=== PATIENT | female | born 1960 | race Caucasian/White ===

== ENCOUNTER → 2020-11-29 02:58 | Outpatient (CLI) | payer MEDICARE, SELFPAY ==
[2020-11-29 19:42] LABS: SARS-CoV-2 RNA PCR Negative
== END ==
PROVIDERS: PCP Nurse Practitioner Adult Health; Visit Provider Internal Medicine Cardiovascular Disease
DX: Z01.812 Encounter for preprocedural laboratory examination (principal); Z20.822 Contact with and (suspected) exposure to COVID-19
CPT/HCPCS: C9803; U0003; U0005

== ENCOUNTER → 2020-12-02 00:44 | Day surgery (SDC) | payer MEDICARE, MEDICAID, SELFPAY ==
[2020-12-01 15:29] VITALS: BMI 27.5
[2020-12-02] VITALS (11 sets, daily range): BP systolic 115–142; BP diastolic 66–88; PULSE 57–76; RESP 11–20; TEMP 36.3–36.4; O2SAT 98–100
--- NOTE | ~2020-12-02 | XR_ITS ---
EXAMINATION: XR chest 1V portable INDICATION: Chest pain, ICD lead revision TECHNIQUE: Portable AP chest at 1115 hours COMPARISON: 11/23/2016 FINDINGS: The lungs are free of acute opacities. There is no pleural effusion or pneumothorax. Cardio megaly is noted. A second pacemaker lead has been inserted. The existing pacemaker lead is seen to be disconnected from the pacer. The visualized osseous structures are unremarkable. IMPRESSION: 1. Pacemaker lead insertion. No pneumothorax. 2. Cardiomegaly. Reviewed, dictated and finalized at location B.
--- NOTE | 2020-12-02 06:00 | ECG_ITS ---
Measurements Intervals [place] Rate: 65 P: 63 RI: 151 QRS: -39 QRSD: 100 T: 132 QT: 404 QTc: 420 Interpretive Statements SINUS RHYTHM POSSIBLE LEFT ATRIAL ENLARGEMENT LEFT AXIS DEVIATION CANNOT RULE OUT SEPTAL INFARCT, AGE INDETERMINATE LEFT VENTRICULAR HYPERTROPHY WITH ST-T CHANGE BORDERLINE T WAVE ABNORMALITY- ANTEROLATERAL LEADS ABNORMAL ECG Electronically Signed On 12-02-2020 12:48:09 CDT by George Em D.O.
[2020-12-02 07:13] LABS: Basophils Percent Auto 0.3 % (0.2-1.2); Eosinophils Absolute Auto 0.1 K/mm3 (0-0.3); Eosinophils Percent Auto 1.7 % (0-4.4); Hematocrit 37.8 % (37.0-47.0); Hemoglobin 12.4 g/dL (12.0-15.0); Immature Granulocyte Absolute 0.02 K/mm3 (0.00-0.031); Immature Granulocyte Percent A 0.3 % (0-0.5); Lymphocytes Absolute Auto 1.38 K/mm3 (0.9-3.2); Lymphocytes Percent Auto 19.4 % (18.3-44.2); Mean Corpuscular HGB Conc 32.8 g/dl (32-36); Mean Corpuscular Hemoglobin 31.1 pg (26-34); Mean Corpuscular Volume 94.7 fl (80-100); Mean Platelet Volume 9.6 fl (7.4-10.4); Monocytes Absolute Auto 0.4 K/mm3 (0.1-0.6); Monocytes Percent Auto 5.5 % (2.6-8.5); Neutrophils Absolute Auto 5.2 K/mm3 (1.3-6.7); Neutrophils Percent Auto 72.8 % (45.5-73.1); Platelet Count Result 249 k/mm3 (150-375); Red Blood Count 3.99 M/mm3 (4.2-5.4); Red Cell Distribution Width 13.8 % (11.5-14.5); White Blood Count 7.1 K/mm3 (4.5-10.0)
[2020-12-02 07:23] LABS: Anion Gap 7 mmol/L (8-16); Blood Urea Nitrogen 24 mg/dL (7-17); Calcium 9.3 mg/dL (8.4-10.2); Carbon Dioxide 24 mmol/L (22-30); Chloride 109 mmol/L (98-107); Estimated CRCL calculation 64 ml/min; Estimated Glomerular Filt Rate > 60; Glucose 107 mg/dL (65-105); Potassium 4.5 mmol/L (3.4-5.0); Sodium 140 mmol/L (137-145)
[2020-12-02 07:25] LABS: INR 0.9; Prothrombin Time 12.5 Seconds (11.1-14.7)
--- NOTE | 2020-12-02 07:28 | PM.IMHP ---
H&P: HPI History of Present Illness Date/Time: 12/02/20 07:28 Chief Complaint: Malfunction of ICD lead Narrative: Agata Martinez is a 60-year-old female with a history CAD and ischemic cardiomyopathy followed by Dr. Michael. She has a [employer] ICD which I implanted in September 2016 and then required a lead revision in November 2016. She has done well over the last several years. Recently we found that she had high lead impedance and high thresholds consistent with fibrosis around the lead and exit block. RV lead revision is recommended prior to lead failure. The patient is feeling well today with no shortness of breath fevers or illness. She has been NPO. Review of Systems Constitutional: Constitutional: Reports no additional constitutional complaints ENT: Reports system reviewed and no additional complaints, except as documented Cardiovascular: Cardiovascular: Denies chest pain, Denies pedal edema, Denies leg edema, Denies lightheadedness and Denies palpitations Respiratory: Respiratory: Denies chest congestion, Denies cough and Denies dyspnea Gastrointestinal: Gastrointestinal: Denies abdominal pain Genitourinary: Genitourinary: Reports no additional female genitourinary complaints Musculoskeletal: Musculoskeletal: Reports arthralgias Integumentary/Breasts: Skin/Breast: Denies rash Neurologic: Reports system reviewed and no additional complaints, except as documented Psychiatric: Psychiatric: Reports no additional psychiatric complaints [facility] Past Medical History Medical History (Updated 12/02/20 @ 07:39 by Mary Jo Siegel MD) CAD (coronary artery disease) July 2011 NSTEMI, 2 ROBBY to the proximal/mid Left anterior descending 04/2012 ischemia, InStent restenoses, 2 ROBBY to the proximal mid Left anterior descending 04/2012 anterior STEMI secondary to acute stent thrombosis, 2 ROBBY to the Left anterior descending by Dr. jensen in. CHF (congestive heart failure) 2012 Depression Dyslipidemia Hypothyroidism ICD (implantable cardioverter-defibrillator) in place 2017 implantation of a [employer] single lead ICD. Required lead revision 1 month later. Migraines Rheumatoid arthritis Family History Family History (Updated 12/02/20 @ 07:38 by Mary Jo Siegel MD) Other Cancer Rheumatoid arthritis Social History Social History Smoking status: Former smoker Tobacco type: cigarettes Additional smoking assessment comments: 12PPD Alcohol use details: twice a year patient has one drink Substance use: never Living arrangements: with family Spiritual care concerns: No Meds Home Medications and Allergies Home Medications Medication Instructions Recorded Confirmed Type carvedilol 12.5 mg PO BID 12/01/20 12/01/20 History clopidogrel 75 mg PO DAILY 12/01/20 12/01/20 History cyclobenzaprine 10 mg PO TID 12/01/20 12/01/20 History duloxetine [Cymbalta] mg PO DAILY 12/01/20 History famotidine 20 mg PO BID 12/01/20 12/01/20 History folic acid 1 mg PO DAILY 12/01/20 12/01/20 History hydroxychloroquine [Plaquenil] 200 mg PO BID 12/01/20 12/01/20 History levothyroxine 125 mcg PO DAILY 12/01/20 12/01/20 History lisinopril 10 mg PO DAILY 12/01/20 12/01/20 History methotrexate sodium [Methotrexate WEEKLY 12/01/20 History (Anti-Rheumatic)] rosuvastatin 40 mg DAILY 12/01/20 12/01/20 History Allergies Allergy/AdvReac Type Severity Reaction Status Date / Time No Known Allergies Allergy Verified 04/29/16 18:11 Exam Const: General: comfortable and no acute distress HENMT: Mouth: Yes moist mucous membranes Other: Upper and lower dentures Eyes: EOM: EOMs intact bilaterally Neck: Neck: supple Thyroid: thyroid normal Lymphatic: lymphadenopathy not noted Resp: Effort & Inspection: normal respiratory effort Auscultation: clear to auscultation bilaterally
--- NOTE | 2020-12-02 07:44 | WPDMODSED ---
Moderate Sedation Note-Pt Data Patient Data Diagnosis: ICD RV lead failure, with fibrosis and exit block Present Complaint: ICD RV lead failure Procedure to be performed/Plan: Conscious sedation Veenogram Replacement of ICD lead Allergies Allergy/AdvReac Type Severity Reaction Status Date / Time No Known Allergies Allergy Verified 04/29/16 18:11 Home Medications Medication Instructions Recorded Confirmed Type carvedilol 12.5 mg PO BID 12/01/20 12/01/20 History clopidogrel 75 mg PO DAILY 12/01/20 12/01/20 History cyclobenzaprine 10 mg PO TID 12/01/20 12/01/20 History duloxetine [Cymbalta] mg PO DAILY 12/01/20 History famotidine 20 mg PO BID 12/01/20 12/01/20 History folic acid 1 mg PO DAILY 12/01/20 12/01/20 History hydroxychloroquine [Plaquenil] 200 mg PO BID 12/01/20 12/01/20 History levothyroxine 125 mcg PO DAILY 12/01/20 12/01/20 History lisinopril 10 mg PO DAILY 12/01/20 12/01/20 History methotrexate sodium [Methotrexate WEEKLY 12/01/20 History (Anti-Rheumatic)] rosuvastatin 40 mg DAILY 12/01/20 12/01/20 History Sedation/Anesthesia: No previous sedation/anesthesia problems (including family history). [facility] Past Medical History Medical History (Updated 12/02/20 @ 07:39 by Mary Jo Siegel MD) CAD (coronary artery disease) July 2011 NSTEMI, 2 ROBBY to the proximal/mid Left anterior descending 04/2012 ischemia, InStent restenoses, 2 ROBBY to the proximal mid Left anterior descending 04/2012 anterior STEMI secondary to acute stent thrombosis, 2 ROBBY to the Left anterior descending by Dr. jensen in. CHF (congestive heart failure) 2011 Depression Dyslipidemia Hypothyroidism ICD (implantable cardioverter-defibrillator) in place 2016 implantation of a [employer] single lead ICD. Required lead revision 1 month later. Migraines Rheumatoid arthritis Family History Family History (Updated 12/02/20 @ 07:38 by Mary Jo Siegel MD) Other Cancer Rheumatoid arthritis Social History Social History Smoking status: Former smoker Tobacco type: cigarettes Additional smoking assessment comments: 1/2PPD Alcohol use details: twice a year patient has one drink Substance use: never Living arrangements: with family Spiritual care concerns: No Mod Sed Physical Exam Physical Exam Pre Procedural Exam: Normal: Appearance, Eyes, Ears, Nose, Neck, Throat, Lungs, Heart Size, Heart Rate, Heart Rhythm, Neuro Exam, Abdomen, Liver, Extremities and Skin (ICD incision well-healed) and Variation: Airway (Upper and lower dentures) Hours since solid foods: 12 Hours since liquid intake: 12 Internal Medicine - PN: Obj Da Vital Signs Vital Signs: Vital Signs - 24 hr 12/02/20 07:34 Temperature 97.4 F L Pulse Rate 68 Respiratory Rate 11 L Blood Pressure 135/67 Pulse Oximetry 100 Labs CBC & Chem 7: 12/02/20 06:49 12/02/20 06:49 Labs: Laboratory Results - last 24 hr 12/02/20 12/02/20 12/02/20 06:49 06:49 06:49 WBC 7.1 RBC 3.99 L Hgb 12.4 Hct 37.8 MCV 94.7 MCH 31.1 MCHC 32.8 RDW 13.8 Plt Count 249 MPV 9.6 Immature Gran % (Auto) 0.3 Neut % (Auto) 72.8 Lymph % (Auto) 19.4 [place] % (Auto) 5.5 Eos % (Auto) 1.7 Baso % (Auto) 0.3 Lymph # (Auto) 1.38 [place] # (Auto) 0.4 Eos # (Auto) 0.1 Baso # (Auto) 0.0 Abs Immat Gran (auto) 0.02 Absolute Neuts (auto) 5.2 Absolute Nucleated RBC 0.0 Nucleated RBC % 0.0 PT 12.5 INR 0.9 Sodium 140 Potassium 4.5 Chloride 109 H Carbon Dioxide 24 Anion Gap 7 L BUN 24 H Creatinine 0.80 Estim Creat Clear Calc 64 Estimated GFR > 60 Glucose 107 H Calcium 9.3 ASA Classification/Sedation ASA Classification/Sedation ASA Class: III Risks: Risks, benefits and alternatives explained and patient/family accepted plan for sedation. Patient re-evaluated immediately prior to sedation.
--- NOTE | 2020-12-02 09:29 | SUR.OPER ---
Pre and post sponge and needle counts were performed during this procedure. Performed by RT Linda and confirmed by Kathryn Hubbard RN.
--- NOTE | 2020-12-02 09:58 | PM.OP ---
Procedure Note - Brief Procedure Note - Brief Date of procedure: 12/02/20 Pre-op diagnosis: cv lead impedance ICDRV lead malfunction Post-op diagnosis: same Procedure performed: conscious sedation venogram implantation of a new RV lead Description of procedure: s/p new ICD RV lead Surgeon: Mary Jo Siegel MD Disposition: same day
--- NOTE | 2020-12-02 10:08 | PM.PROC ---
Procedure Note - Detailed Date of procedure: 12/02/20 Pre-op diagnosis: cv lead impedance Description of procedure: HISTORY: Agata Morse is a 60-year-old female status post [employer] ICD for primary prevention in 2017. Recently she was found to have elevated RV lead thresholds as well as elevated impedance consistent with fibrosis around the lead tip and exit block. Because of concern of lead failure, we are proceeding with an ICD right ventricular lead V revision. The patient was also given the option of extraction then subsequent lead revision, since if she has an abandoned lead the system is not MRI compatible. She declined. PROCEDURE PERFORMED: Conscious sedation Venogram Placement of a permanent dual-chamber pacemaker SITE: Left prepectoral area MEDICATIONS GIVEN IN FRAME CLEANER: Ancef 1 gram IV piggyback CONSCIOUS SEDATION: Assessment: The patient has no history of anesthesia problems. The patient's oropharynx is clear. The patient was deemed to be a good candidate for conscious sedation. The patient had continuous hemodynamic monitoring during the procedure. Start time: 826 Completion time: 952 Total conscious sedation time: 86 minutes Medications: Versed 3 mg, fentanyl 100 mcg IV push Trained observer: Kathryn Hubbard RN Outcome: The patient tolerated the procedure well with no complications. PROCEDURE: After informed consent , the patient was brought to the cardiovascular lab director and the left prepectoral area was prepped and draped in usual fashion . The patient received preop antibiotic and conscious sedation . A venogram was performed showing the course of the left subclavian vein,which was patent though quite tortuous. There was a stenosis of about 50% proximal to where the lead entered the vein. Attempt was made to access the left subclavian vein without easy success so I elected to obtain access through the pocket. The left prepectoral area was anesthetized with lidocaine . Next a skin incision was made and carried down to the pulse generator. Hemostasis was obtained using electrocautery . The left subclavian vein than was easily accessed with the micropuncture technique. However because of the stenosis and tortuosity I cannot easily passed the guidewire and used to slippery wire. With some manipulation I was able to guided into the inferior vena cava. I elected to use a long sheath because of the tortuosity of the venous system. A 7 [place] long sheath was placed over this wire and the wire withdrawn. The right ventricular high-voltage lead lead was passed into the right atrium and was then prolapsed through the tricuspid valve and advanced into the right ventricular apex under fluoroscopic guidance. When suitable sensing and pacing thresholds were obtained, it was screwed into place. No extra cardiac stimulation was obtained using 10 volts. The sheath was withdrawn. The lead was secured to the prepectoral fascia using 2-0 silk over its sleeve. The pocket was further dissected and the pulse generator was delivered from the pocket. The existing lead was disconnected and the new lead was screwed into the generator. A gentle tug showed the lead was securely fastened. The old lead was capped and secured with 2 0 silk suture. Using the silk suture stay stitch was also applied. The pocket was irrigated with antibiotic containing solution. The device was introduced into the pocket. The subcutaneous tissues were closed in a double layer fashion with interrupted sutures, using 2-0 Vicryl suture , and the skin was closed in a continuous fashion using 4-0 Vicryl suture in a continuous fashion. The area was cleansed, and an Aquacel dressing was applied . The patient tolerated the procedure well with no complications. PACEMAKER INFORMATION: Existing Pulse generator: [employer] model Fortify Assura VR 1357-40Q, Serial # [id number] implanted 10/09/2016 New Right ventricular lead: [employer] Durata 7122Q/[id number], serial
--- NOTE | 2020-12-02 14:55 | SUR.PHASEII ---
1420 patient ambulated to chair, no signs of further bleeding under the dressing, will continue to monitor.
== END | disposition home or self-care (01) ==
PROVIDERS: PCP Nurse Practitioner Adult Health; Visit Provider Internal Medicine Cardiovascular Disease
DX: T82.110A Breakdown (mechanical) of cardiac electrode, initial encounter (principal); T82.827 Fibrosis due to cardiac prosthetic devices, implants and grafts; Y83.8 Other surgical procedures as the cause of abnormal reaction of the patient, or of later complication, without mention of misadventure at the time of the procedure; I25.10 Atherosclerotic heart disease of native coronary artery without angina pectoris; I25.5 Ischemic cardiomyopathy; I50.9 Heart failure, unspecified; I25.2 Old myocardial infarction; E78.5 Hyperlipidemia, unspecified; E03.9 Hypothyroidism, unspecified; M06.9 Rheumatoid arthritis, unspecified; F32.9 Major depressive disorder, single episode, unspecified; Z87.891 Personal history of nicotine dependence; Z79.02 Long term (current) use of antithrombotics/antiplatelets
CPT/HCPCS: 33216; 36415; 71045; 80048; 85025; 85610; 93005; A9270; C1777; J0690; J2250; J3010; J7040

== ENCOUNTER → 2020-12-17 07:04 | Outpatient (CLI) | payer MEDICARE, SELFPAY ==
[2020-12-17 19:12] LABS: SARS-CoV-2 RNA PCR Negative
== END ==
PROVIDERS: PCP Nurse Practitioner Adult Health; Visit Provider Nurse Practitioner Adult Health
DX: J06.9 Acute upper respiratory infection, unspecified (principal); Z20.822 Contact with and (suspected) exposure to COVID-19
CPT/HCPCS: C9803; U0003; U0005

== ENCOUNTER 2021-01-26 16:54 | Outpatient (CLI) | payer MEDICARE, SELFPAY ==
--- NOTE | ~2021-01-26 | XR_ITS ---
EXAMINATION: XR chest 2V DATE: 01/26/2021 17:16 INDICATION: Malfunction of implantable defibrillator. TECHNIQUE: PA and lateral views of the chest were obtained. COMPARISON: Chest radiograph dated 12/02/2020 FINDINGS: The lungs remain clear with no focal airspace opacities, pulmonary edema, pleural effusion or pneumot horax. The cardiomediastinal silhouette is normal. Coronary artery stenting. There are a pair of card iac pacemaker/defibrillator leads with both distal lead tips projecting over the expected location of the right atrial appendage. These lead to the left pectoral pacemaker device. One of the leads appea rs disconnected with the disconnected tip projecting over the caudal aspect of the pacemaker device. IMPRESSION: 1. No acute cardiopulmonary disease. Reviewed, dictated and finalized at location A.
== END 2021-01-26 16:55 | disposition home or self-care (01) ==
LOC: ANHIMG 17:01
PROVIDERS: PCP Nurse Practitioner Adult Health; Visit Provider Internal Medicine Cardiovascular Disease
DX: T82.198A Other mechanical complication of other cardiac electronic device, initial encounter (principal); I25.5 Ischemic cardiomyopathy; Z95.810 Presence of automatic (implantable) cardiac defibrillator
CPT/HCPCS: 71046

== ENCOUNTER 2022-02-16 12:10 | Outpatient (CLI) | payer MEDICARE, SELFPAY ==
--- NOTE | ~2022-02-16 | XR_ITS ---
EXAMINATION: XR lg joint inject/asp w image DATE: 02/16/2022 13:54 INDICATION: Right hip osteoarthritis TECHNIQUE: A time-out was performed to verify the patient's name, date of , and procedure to b e performed. The procedure including the risks, benefits, and alternatives was discussed with the pat ient. Risks discussed included bleeding and infection. The patient understood the risks and agreed to proceed. The skin overlying the right hip joint was prepped and draped in usual sterile fashion. A nesthetic was administered with 1% lidocaine subcutaneously. A 22 G needle was advanced under fluoro scopic guidance into the joint. Injection of a small amount of gas was used to confirm intra-articul ar position of the needle. Subsequently, injectate consisting of 3 mL of a 2:1 mixture of 1% lidocai ne: 40 mg/mm Kenalog for a total dosage of 40 mg Kenalog was instilled. The needle was removed and th e entry site was cleaned and dressed. There were no immediate complications. Fluoroscopy exposure ti me was 0.1 minutes. The total number of images was 1. FINDINGS: Real-time fluoroscopy demonstrates the needle in the right hip joint. Patient's pain prior to procedure:4/10. Patient's pain following the procedure: 0/10. IMPRESSION: 1. Successful right hip joint injection of local anesthetic and steroid with decrease in the patient' s presenting pain. Reviewed, dictated and finalized at location A. IMPRESSION: 1. Successful right hip joint injection of local anesthetic and steroid with de crease in the patient's presenting pain.
== END 2022-02-16 12:11 | disposition home or self-care (01) ==
PROVIDERS: PCP Nurse Practitioner Adult Health
DX: M16.11 Unilateral primary osteoarthritis, right hip (principal)
CPT/HCPCS: 20610; 77002; J3301

== ENCOUNTER 2022-07-26 09:07 | Outpatient (CLI) | payer MEDICARE, SELFPAY ==
--- NOTE | ~2022-07-26 | XR_ITS ---
EXAMINATION: XR lg joint inject/asp w image DATE: 07/26/2022 10:20 INDICATION: Right hip osteoarthritis with pain TECHNIQUE: A time-out was performed to verify the patient's name, date of , and procedure to b e performed. The procedure including the risks, benefits, and alternatives was discussed with the pat ient. Risks discussed included bleeding and infection. The patient understood the risks and agreed to proceed. The skin overlying the right hip joint was prepped and draped in usual sterile fashion. A nesthetic was administered with 1% lidocaine subcutaneously. A 22 G needle was advanced under fluoro scopic guidance into the joint. Injection of 1 mL of Omnipaque 240 confirmed intra-articular positio n of the needle. Subsequently, injectate consisting of 4 mL of a 3:1 mixture of 1% lidocaine: 40 mg/ mL Kenalog for a total dosage of 40 mg Kenalog was instilled. Washout of contrast was seen confirming intra-articular administration. The needle was removed and the entry site was cleaned and dressed. There were no immediate complications. Fluoroscopy exposure time was 0.1 minutes. The total number of images was 2. FINDINGS: Real-time fluoroscopy demonstrates the needle in the right hip joint. Patient's pain prior to procedure:1/10. Patient's pain following the procedure: 0/10. IMPRESSION: 1. Successful right hip joint injection of local anesthetic and steroid with decrease in the patient' s presenting pain. Reviewed, dictated and finalized at location A. [employer]ING [employer] IMPRESSION: 1. Successful right hip joint injection of local anesthetic and steroid with de crease in the patient's presenting pain.
== END 2022-07-26 09:08 | disposition home or self-care (01) ==
LOC: ANHIMG 09:09
PROVIDERS: PCP Nurse Practitioner Adult Health
DX: M16.11 Unilateral primary osteoarthritis, right hip (principal)
CPT/HCPCS: 20610; 77002; J3301; Q9966

== ENCOUNTER 2022-08-29 10:28 | Emergency (ER) | payer MEDICARE, SELFPAY ==
[2022-08-29] VITALS (22 sets, daily range): BP systolic 120–143; BP diastolic 69–95; PULSE 43–63; RESP 11–22; TEMP 36.4; O2SAT 88–100
--- NOTE | 2022-08-29 12:16 | ED.GENADULT ---
HPI - General Adult General Chief complaint: Unspecified Stated complaint: EYE SWELLING FOR MONTHS Time Seen by Provider: 08/29/22 12:02 History of Present Illness HPI narrative: Patient is a 62-year-old female with a history of hypertension, hyperlipidemia, CAD, rheumatoid arthritis, hypothyroidism presenting with facial swelling. Patient states that her face has been swollen for the last 4 months. States that it started in April after she was placed on Entresto. Initially her house admin thought it may be related to the Entresto so she was taken off of this. Unfortunately, the swelling has continued. She saw her house admin in July who gave her a round of steroids which did not improve the swelling. Patient states that the swelling is really just around her eyes. She denies neck, chest, upper back swelling. No leg swelling. She denies any pain. No vision changes. No difficulty breathing or swallowing. No recent medication changes. No rashes. Related Data Home Medications Medication Instructions Recorded Confirmed carvedilol 12.5 mg tablet 12.5 mg PO BID 12/01/20 12/01/20 clopidogrel 75 mg tablet 75 mg PO DAILY 12/01/20 12/01/20 cyclobenzaprine 10 mg tablet 10 mg PO TID 12/01/20 12/01/20 duloxetine 60 mg capsule,delayed mg PO DAILY 12/01/20 release (Cymbalta) famotidine 20 mg tablet 20 mg PO BID 12/01/20 12/01/20 folic acid 1 mg tablet 1 mg PO DAILY 12/01/20 12/01/20 hydroxychloroquine 200 mg tablet 200 mg PO BID 12/01/20 12/01/20 (Plaquenil) levothyroxine 125 mcg capsule 125 mcg PO DAILY 12/01/20 12/01/20 lisinopril 10 mg tablet 10 mg PO DAILY 12/01/20 12/01/20 methotrexate sodium 2.5 mg tablet WEEKLY 12/01/20 rosuvastatin 40 mg tablet 40 mg DAILY 12/01/20 12/01/20 Allergies Allergy/AdvReac Type Severity Reaction Status Date / Time No Known Allergies Allergy Verified 08/29/22 11:23 Review of Systems Review of Systems: All systems reviewed & are unremarkable except as noted in HPI and below PMFSH Past Medical History Medical History CAD (coronary artery disease) July 2011 NSTEMI, 2 ROBBY to the proximal/mid Left anterior descending 04/2012 ischemia, InStent restenoses, 2 ROBBY to the proximal mid Left anterior descending 04/2012 anterior STEMI secondary to acute stent thrombosis, 2 ROBBY to the Left anterior descending by Dr. jensen in. CHF (congestive heart failure) 2011 Depression Dyslipidemia Hypothyroidism ICD (implantable cardioverter-defibrillator) in place 2016 implantation of a [employer] single lead ICD. Required lead revision 1 month later. Migraines Rheumatoid arthritis Family History Family History Other Cancer Rheumatoid arthritis Social History Social History Smoking status: Former smoker Tobacco type: cigarettes Additional smoking assessment comments: 2PPD Alcohol use details: twice a year patient has one drink Substance use: never Spiritual care concerns: No Exam Narrative: GENERAL: Well-appearing, well-nourished, and in no acute distress. HEAD: Normocephalic, atraumatic. EYES: PERRLA and EOMI. bilateral periorbital edema ENT: Nares clear, no rhinorrhea or epistaxis. Mucous membranes moist. NECK: Supple. CHEST: Clear to auscultation. No respiratory distress. HEART: Regular rate and rhythm. No murmur heard. Normal peripheral pulses. ABDOMEN: Soft, nontender, nondistended, normal active bowel sounds. EXTREMITIES: Normal range of motion. No edema. SKIN: Warm, dry, no rash. NEURO: No focal deficits. Alert and oriented x3. PSYCH: Normal mood and affect. Course Vital Signs Vital signs: Vital Signs Temperature 97.6 F 08/29/22 10:31 Pulse Rate 58 L 08/29/22 10:31 Respiratory Rate 18 08/29/22 10:31 Pulse Oximetry 99 08/29/22 10:31 Oxygen Delivery Room Air
--- NOTE | 2022-08-29 12:23 | ECG_ITS ---
Measurements Intervals [place] Rate: 51 P: 3 SC: 138 QRS: -33 QRSD: 89 T: 191 QT: 445 QTc: 413 Interpretive Statements SINUS BRADYCARDIA LEFT AXIS DEVIATION LEFT VENTRICULAR HYPERTROPHY AND ST-T CHANGE ANTEROSEPTAL INFARCT, AGE INDETERMINATE T WAVE ABNORMALITY IN ANTEROLATERAL LEADS- CONSIDER ISCHEMIA ABNORMAL ECG COMPARED TO ECG 12/02/2020 11:54:34 T WAVE ABNORMALITY NOW PRESENT Electronically Signed On 08-29-2022 13:02:47 [employer] by George Em D.O.
[2022-08-29 12:50] LABS: Basophils Percent Auto 0.4 % (0.2-1.2); Eosinophils Absolute Auto 0.1 K/mm3 (0-0.3); Eosinophils Percent Auto 0.7 % (0-4.4); Hematocrit 35.6 % (37.0-47.0); Hemoglobin 11.9 g/dL (12.0-15.0); Immature Granulocyte Absolute 0.02 K/mm3 (0.00-0.031); Immature Granulocyte Percent A 0.3 % (0-0.5); Lymphocytes Absolute Auto 1.41 K/mm3 (0.9-3.2); Lymphocytes Percent Auto 18.4 % (18.3-44.2); Mean Corpuscular HGB Conc 33.4 g/dl (32-36); Mean Corpuscular Hemoglobin 32.5 pg (26-34); Mean Corpuscular Volume 97.3 fl (80-100); Mean Platelet Volume 9.8 fl (7.4-10.4); Monocytes Absolute Auto 0.5 K/mm3 (0.1-0.6); Monocytes Percent Auto 6.1 % (2.6-8.5); Neutrophils Absolute Auto 5.7 K/mm3 (1.3-6.7); Neutrophils Percent Auto 74.1 % (45.5-73.1); Platelet Count Result 253 k/mm3 (150-375); Red Blood Count 3.66 M/mm3 (4.2-5.4); Red Cell Distribution Width 15.8 % (11.5-14.5); White Blood Count 7.7 K/mm3 (4.5-10.0)
[2022-08-29 13:10] LABS: Alanine Aminotransferase 44 U/L (6-35); Albumin Level 4.7 g/dL (3.5-5.1); Alkaline Phosphatase 100 U/L (38-126); Anion Gap 6 mmol/L (8-16); Aspartate Amino Transferase 74 U/L (14-36); Bilirubin,Total 0.7 mg/dL (0.2-1.3); Blood Urea Nitrogen 14 mg/dL (7-17); Calcium 8.8 mg/dL (8.4-10.2); Carbon Dioxide 28 mmol/L (22-30); Chloride 103 mmol/L (98-107); Estimated Glomerular Filt Rate 33; Glucose 91 mg/dL (65-110); Potassium 4.2 mmol/L (3.4-5.0); Sodium 137 mmol/L (137-145)
[2022-08-29 13:17] LABS: NT Pro B Type Natriuretic Pept 207 pg/mL (5-100)
[2022-08-29 13:28] LABS: Appearance Urine Clear (Clear); Color Urine Yellow (Yellow)
[2022-08-29 13:29] LABS: Protein Urine 2+ mg/dL (Negative); Specific Grav Ur > 1.030 (1.001-1.035)
[2022-08-29 13:30] LABS: Blood Urine Negative (Negative); Glucose Urine UA Negative (Negative); Ketones Urine Negative (Negative); Nitrate Urine Negative (Negative)
[2022-08-29 13:31] LABS: Add Urine Microscopic? YES; Bilirubin Urine Negative (Negative); Leukocyte Esterase Ur Negative LEU/UL (Negative)
[2022-08-29 13:34] LABS: Bacteria Urine Trace /hpf; Mucus Urine Rare /lpf; RBC Urine 0-2 /hpf (0-2); Squamous Epithelial Cell Urine Many /hpf (Few)
[2022-08-29 15:18] LABS: Thyroid Stimulating Hormone Reflex > 100.000 uIU/mL (0.465-4.68)
[2022-08-29 15:43] LABS: Free T4 Free Thyroxine Reflex < 0.07 ng/dL (0.78-2.19)
[2022-08-29] MEDS: LEVOTHYROXINE SODIUM 125 MCG TABLET PO (16:47)
== END 2022-08-29 17:05 | disposition home or self-care (01) ==
PROVIDERS: Emergency Provider Emergency Medicine
DX: H05.223 Edema of bilateral orbit (principal); E03.9 Hypothyroidism, unspecified; R94.4 Abnormal results of kidney function studies; I25.10 Atherosclerotic heart disease of native coronary artery without angina pectoris; I50.9 Heart failure, unspecified; F32.9 Major depressive disorder, single episode, unspecified; R82.998 Other abnormal findings in urine
CPT/HCPCS: 36415; 80053; 81001; 83880; 84439; 84443; 85025; 87086; 93005; 99283; A9270